=== PATIENT | female | born 2000 | race Caucasian/White ===

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

== ENCOUNTER → 2018-02-12 16:09 | Outpatient (CLI) | payer BC ==
[2017-12-26 08:33] VITALS: BMI 27.5
[~2018-02-12 16:09] MED LIST changes: +KEFLEX500 MG PO; +PERCOCET 5-3251 TAB PO
== END | disposition home or self-care (01) ==
LOC: D.MRI 02-09 11:00
DX: M25.562 Pain in left knee (principal)

== ENCOUNTER 2018-05-11 08:45 | Day surgery (SDC) | payer OTHER ==
[2018-05-10 12:19] LABS: HEMATOCRIT 39.3 % (36.0-48.0); MCHC 33.1 g/dL (31.0-37.0); MCV 90.8 fL (80.0-100.0); RBC 4.33 10x6/uL (4.00-5.40); RDW 12.5 % (11.5-14.5); WBC 4.5 10x3/uL (4.8-10.8)
[~2018-05-11] VITALS: Ht 160 cm; Wt 70.3 kg
[2018-05-11] MEDS ORDERED: PROZAC40 MG PO (09:56)
[2018-05-11 10:00] VITALS: BP 119/65; BMI 28.9
[2018-05-11 11:23] LABS: HCG URINE NEGATIVE (NEGATIVE)
--- NOTE | 2018-05-11 18:58 | NUR ---
1850 PATIENT ARRIVED BACK IN PACU AFTER OR 2ND TIME. SEE ASSESSMENT.
[2018-05-11 19:00] VITALS: BP 128/82
--- NOTE | 2018-05-11 19:23 | NUR ---
192 PATIENT READY TO DISCHARGE OUT OF RECOVERY TO INPATIENT ROOM. REPORT CALLED TO FLOOR NURSE.
--- NOTE | 2018-05-11 20:00 | NUR ---
RECEIVED PATIENT FROM PACU, WITH PARENTS ESCORTING. PATIENT BED IN LOW POSITION WITH CALL LIGHT WITHIN REACH AND SIDERAILS X2. PATIENT DEMONSTRATES APPROPRIATE USE OF A CALL LIGHT. PARENT TO SPEND THE NIGHT WITH THE PATIENT. THE PATIENTAPPEARS COMFORTABLE AND THE PATIENT OR PARENT HAVE NO QUESTIONS OR CONCERNS AT THIS TIME.
[2018-05-11 20:37] VITALS: BP 128/82; Ht 160 cm; Wt 70.3 kg
[2018-05-12] VITALS: BP 130/75
--- NOTE | 2018-05-12 01:45 | NUR ---
PATIENT USING BEDPAN. PEDAL PULSES PRESENT.
[2018-05-12 03:00] VITALS: BP 115/54
--- NOTE | 2018-05-12 04:43 | NUR ---
PATIENT COMPLAINS OF PAIN IN HER RIGHT KNEE. PAIN MEDICATION DELIVERED. LEFT FOOT PEDAL PULSES PRESENT AND FOOT IS WARM TO THE TOUCH.
[2018-05-12 05:26] LABS: HEMATOCRIT 36.7 % (36.0-48.0); HEMOGLOBIN 11.9 g/dL (12-16)
[2018-05-12 08:00] VITALS: BP 108/62
--- NOTE | 2018-05-12 09:30 | OP ---
PATIENT NAME: WILLIAM ANNE MEDICAL RECORD: [id number] :98 LOCATION: D.2232 ADMISSION DATE: SURGEON: RUDY BARROSO DO DATE OF OPERATION: 05/11/2018 PROCEDURE PERFORMED: Tibial tubercle osteotomy, anterior medialization, lateral release of the patellar retinaculum and medial capsular imbrication; these all on the left knee. PREOPERATIVE DIAGNOSES: Left knee patellar instability, recurrent dislocations and hypoplastic trochlea. POSTOPERATIVE DIAGNOSES: Left knee patellar instability, recurrent dislocations and hypoplastic trochlea. INDICATIONS: Ms. Anne is a 17-year-old female who has had recurrent patellar dislocations, she does not even know how many times at the left knee was more unstable than the right. The right was painful, but on the left, she said bothered her more. An MRI was done and demonstrated TT-TG of 20 and a hypoplastic trochlea, setting her up for recurrent dislocations. I informed her we can do a tibial tubercle osteotomy, move the tubercle over so that it would align the patella better; however, this may not correct completely the instability problem due to her hypoplastic trochlea, but we would do the best we could. She was aware of that risk and the risks of infection, bleeding, damage to nerves and vessels, need for further surgery and signed the consent. SURGEON: Rudy Barroso DO DESCRIPTION OF PROCEDURE: The patient was taken to the operative suite, laid in supine position. The left lower extremity was prepped and draped in sterile fashion. The timeout was performed and everyone was in agreement with the correct side, site, patient and procedure. Incision then began over the midline of the knee distal to the tibial tubercle and mid portion of the patella. Once it was marked out, incision began after the left lower extremity was esmarched and the tourniquet was inflated to 350 mmHg and was up for 87 minutes throughout the procedure. Careful dissection was made down to the patella and the patellar tendon. Large flaps were taken medial and lateral to it. The tendon was freed and then a cutting guide was placed on the tibial tubercle from Arthrex 45-degree in order to move the tibial tubercle 10 mm medially. The guide was set and the tibial tubercle was cut with a saw blade and then the most superior portion was cut with a saw as well and a TPS, then completed with half inch osteotome. The tibial tubercle was then moved over anteromedially, medially approximately 10 mm and then 2 K-wires were placed into the tibial tubercle holding it into place while 2 screws were placed over them. These were 4.0 screws, 4.0 x 44 and 4.0 x 55 and then a third one was placed. These were in the anterior and posterior planes. The third one was placed from the lateral to medial plane obliquely and it was a 4.0 cannulated, size 40. These were all done under fluoroscopy to get the correct length and had very good fixation. Quickset was then used from ArthVubiquity calcium sulfate to fill the voids and after this was all done, patella still seemed somewhat unstable and not like before, but it would partially sublux with force from medial to lateral. After seeing this, a small incision was made at the superior medial portion of the patella and imbrication of the medial capsule was done there with #2 Ethibond as well as all along the medial side to the other incision. The lateral release was then performed with a plasma knife and with these two, made the patella more centered OPERATIVE REPORT [id number] WILLIAM ANNE and did not dislocate easily or sublux easily. The wound was then thoroughly irrigated and dried up and then 2-0 Vicryl was used to close the skin in an inverted interrupted fashion at both the incision sites and the ZipLines were placed on them. Adaptic, 4 x 4's, ABD, and Webril were then used and an Sunil wrap on top of that and the patient was placed into a hinged knee brace locked in extension. Blood loss approximately was 100 mL. The tourniquet was let down prior to the skin closure. COMPLICATIONS: None. TRANSINT:[id number] Voice Confirmation ID: [id number] DOCUMENT ID: [id number] RUDY BARROSO DO at 0930 CC: [id number] DICTATION DATE: 05/11/18 165 STANDPIPE TENDER: 05/11/18 2110 [facility] [address] [place] [address]
--- NOTE | 2018-05-12 09:30 | OP ---
PATIENT NAME: WILLIAM ANNE MEDICAL RECORD: [id number] :98 LOCATION: D.2232 ADMISSION DATE: SURGEON: RUDY BARROSO DO DATE OF OPERATION: 05/11/2018 PROCEDURE PERFORMED: Two screw exchange from the left tibia. PREOPERATIVE DIAGNOSIS: Hardware complication of the left tibia. POSTOPERATIVE DIAGNOSIS: Hardware complication of the left tibia. INDICATIONS: Ms. Anne had just undergone a tibial tubercle osteotomy. The postoperative x-rays were taken and seen that her 2 screws and the tibial tubercle osteotomy were too long and in the popliteal fossa are close to it and after noting this, I informed her of it and her parents and told her we need to remove it right away in order to avoid any possible damage to any structures behind the tibia. She did have good dorsiflexion and plantar flexion of her foot as well as her FHL and good pulses, both in the dorsalis pedis and posterior tibial arteries. DESCRIPTION OF PROCEDURE: The patient was taken to the operative suite, laid in supine position, given general anesthetic. The left lower extremity was prepped and draped with Betadine. Once that was prepped and draped, a timeout was performed and everyone was in agreement as to the correct side, site, patient and procedure. She was given 2 grams Ancef. The procedure then began by cutting open the prior incision just enough to get to the tibial hardware, the screws. These screws were removed. They were 4.0 cannulated screws and a K-wire was put in place for 5.0 cannulated screws. This was measured and also on a true lateral x-ray confirmed, the first one more proximal one was a 46 in length, the more distal one was 34. These were both exchanged and put in place, had very good compression at the osteotomy site and good bite. The AP was taken as well to confirm good position of the osteotomy and the screws. The site was then thoroughly irrigated and closed with 2-0 Vicryl in inverted interrupted fashion. A Zipline was placed in on the whole incision and the prior incision and the patient was dressed with Adaptic, 4 x 4s, ABD, Webril, Sunil wrap and a hinged knee brace was put on her. She was then awakened and taken to recovery in stable condition. BLOOD LOSS: Minimal. COMPLICATIONS: None. TRANSINT:[id number] Voice Confirmation ID: [id number] DOCUMENT ID: [id number] RUDY BARROSO DO at 0930 CC: [id number] DICTATION DATE: 05/11/181850 ATMOSPHERIC PHYSICIST: 05/12/18 0058 [facility] [address] [place] [id number]
[2018-05-12 12:00] VITALS: BP 135/54
[2018-05-12] MEDS ORDERED: BAYER CHEWABLE81 MG PO (14:35)
[2018-05-12] MEDS ORDERED: OXYCODONE HCL5 M1 PO (14:35)
[2018-05-12] MEDS ORDERED: VISTARIL50 MG PO (14:35)
[2018-05-12] MEDS ORDERED: KEFLEX500 MG PO (14:36)
--- NOTE | 2018-05-12 16:30 | NUR ---
PATIENT DISCHARED UNDER THE CARE OF FAMILY. PEDAL PULSES NOTED WITH FEELING NOTED TO EXTREMITY. OXYCODONE GIVEN FOR PAIN AND EFFECTIVE FOR PAIN MANAGEMENT. IV DISCONTINUED AND STABLE AT DISCHARGE VERBALIZED UNDERSTANDING OF DISCHARGE INSTRUCTIONS.
== END 2018-05-12 16:36 | disposition home or self-care (01) ==
LOC: D.OPS 08:45 → D.MS 08:45 → D.OPS 10:00 → D.MS 19:44 → D.OPS 05-12 16:36
PROVIDERS: Anesthesiology; Orthopaedic Surgery
DX: M23.52 Chronic instability of knee, left knee (principal); M22.02 Recurrent dislocation of patella, left knee; T84.023A Instability of internal left knee prosthesis, initial encounter

== ENCOUNTER → 2018-08-09 10:10 | Outpatient (CLI) | payer OTHER ==
[~2018-08-09 10:10] MED LIST changes: +BAYER CHEWABLE81 MG PO; +OXYCODONE HCL5 M1 PO; +VISTARIL50 MG PO
== END | disposition home or self-care (01) ==
LOC: D.MRI 10:10
PROVIDERS: ATTEND Orthopaedic Surgery
DX: M22.2X1 Patellofemoral disorders, right knee (principal)

== ENCOUNTER 2018-08-24 05:00 | Day surgery (SDC) | payer OTHER ==
[2018-08-23 10:12] LABS: HEMOGLOBIN 13.1 g/dL (12-16); MCH 29.8 pg (26.0-34.0); MCHC 33.6 g/dL (31.0-37.0); MCV 88.8 fL (80.0-100.0); MEAN PLATELET VOLUME 9.1 fL (7.4-10.4); RBC 4.39 10x6/uL (4.00-5.40); RDW 13.5 % (11.5-14.5); WBC 6.4 10x3/uL (4.8-10.8)
[~2018-08-24] VITALS: Ht 160 cm; Wt 73.9 kg
[~2018-08-24 05:00] MED LIST changes: +SPRINTEC 28 DA1 EAC1 PO
[2018-08-24 05:41] VITALS: BP 120/67; Ht 160 cm; Wt 73.9 kg
[2018-08-24 06:01] LABS: HCG URINE NEGATIVE (NEGATIVE)
--- NOTE | 2018-08-24 07:46 | NUR ---
KIT USED, GROUNDING PAD LOT # [id number] EXP. 06/22/2020
[2018-08-24] MEDS ORDERED: VISTARIL50 MG PO (09:12)
[2018-08-24] MEDS ORDERED: KEFLEX500 MG PO (09:12)
[2018-08-24] MEDS ORDERED: OXYCODONE HCL5 M1 PO (09:12)
--- NOTE | 2018-08-24 10:57 | OP ---
PATIENT NAME: WILLIAM ANNE MEDICAL RECORD: [id number] :98 LOCATION:[facility] ADMISSION DATE: SURGEON: EDDIE BARROSO DO DATE OF OPERATION: 08/24/2018 PROCEDURE PERFORMED: Right tibial tubercle osteotomy with lateral release and medial capsule imbrication. PREOPERATIVE DIAGNOSIS: Right patellar instability. POSTOPERATIVE DIAGNOSIS: Right patellar instability. INDICATIONS: Ms. Anne is a 17-year-old female who has had several episodes of patellar instability with her right and left knee. She underwent the same procedure on the left approximately 3-1/2 months ago. She wanted to have the right one done, she was tired of dealing with it coming out. An MRI was done, which revealed a TT-TG right at 20 and a hypoplastic lateral femoral condyle. She was informed of the risks and benefits of the procedure and signed a consent including blood clots, bleeding, damage to nerves and vessels, need for further surgery, recurrent instability, and even and she signed the consent. She was also aware of the pre and postoperative protocols. SURGEON: Eddie Barroso DO DESCRIPTION OF PROCEDURE: The patient received a block by anesthesia in the preoperative area, taken to the operative suite, laid in supine position. Right lower extremity was prepped and draped in sterile fashion. Timeout was performed and everyone is agreement as to correct side, site, and patient and procedure. She was given a gram of Ancef preoperatively. The right lower extremity was then marked out for the incision and exsanguinated with an Esmarch. Tourniquet was inflated to 350 mmHg and was up for approximately 65 minutes. The incision began with a 10-blade down to the capsule. Flaps were made medial and lateral and the tibial tubercle was exposed, a lateral release was then done going to the lateral retinaculum. Then a pin guide was used on the tibial tubercle and a guide was put into place to make the osteotomy. A saw was then used to make the osteotomy. The sagittal saw was used to make the diagonal cut to complete it and then an osteotome was used to complete it with a hinge distally. The tibial tubercle was moved medially and slightly anteriorly, medially approximately 8 mm and then pinned into place. Two guide pins were then used, 1 for a 4-0 screw and the other one for a 5-0 screw, 4-0 screw proximally and 5-0 screw distally, securing the osteotomy in place, had very well secured and then a stay graft was put in the osteotomy site on the lateral side. The imbrication was then done on the medial capsule doing a twghp-nois-yrui type stitch starting proximally and then distally pulling the patella over it. This made it to feel very stable and one small stitch was placed on the lateral side, pulling the patella down into the groove. This made the patella very secure and was not dislocating at all. Tourniquet was let down. Any bleeders were coagulated with the Aquamantys and then the fascia over the anterolateral tibia was closed with a #1 Vicryl loosely. The skin was then closed with 3-0 Vicryl in an inverted interrupted fashion and a Zipline placed on the knee. Adaptic, 4 x 4s, ABD, Webril, Sunil wrap were then placed on the knee. HUMA hose stockinette was placed up to the knee. She was placed in a knee immobilizer locked at 0 and awakened and taken to recovery in stable condition. Blood loss approximately 100 mL. OPERATIVE REPORT [id number] WILLIAM ANNE COMPLICATIONS: None. TRANSINT:[id number] Voice Confirmation ID: [id number] DOCUMENT ID: [id number] EDDIE BARROSO DO at 1057 CC: [id number] DICTATION DATE: 08/24/18917 WEB DEVELOPMENT INTERN: 08/24/18945 [facility] [address] [place] [address]
--- NOTE | 2018-08-24 11:07 | NUR ---
DISCHARGE INSTRUCTIONS REVIEWED WITH PATIENT AND FATHER. DISCHARGED HOME VIA WHEELCHAIR TO PRIVATE VEHICLE WITH FATHER
== END 2018-08-24 11:07 | disposition home or self-care (01) ==
LOC: D.OPS 05:00 → D.PAN 09:30 → D.OPS 11:07
PROVIDERS: Anesthesiology; ATTEND Orthopaedic Surgery
DX: M25.361 Other instability, right knee (principal); Z01.812 Encounter for preprocedural laboratory examination